=== PATIENT | male | born 1965 | race Caucasian/White ===

== ENCOUNTER 2017-08-08 13:27 | Emergency (ER) | payer MEDICARE, OTHER ==
[~2017-08-08] VITALS: Ht 591.1 cm; Wt 149.0 kg
[~2017-08-08 13:27] MED LIST: PERM60CR19 TP
[2017-08-08 13:34] VITALS: BP 132/78
[2017-08-08] MEDS ORDERED: CEPH-572 PO (15:08)
[2017-08-08] MEDS ORDERED: IBUP-1986 PO (15:21)
== END 2017-08-08 15:39 | disposition home or self-care (01) ==
LOC: ER 13:27
DX: S61.213A Laceration without foreign body of left middle finger without damage to nail, initial encounter (principal); Z79.899 Other long term (current) drug therapy; W26.8XXA Contact with other sharp object(s), not elsewhere classified, initial encounter; Y93.89 Activity, other specified; Y92.89 Other specified places as the place of occurrence of the external cause; Y99.8 Other external cause status
CPT/HCPCS: 99283; A6255

== ENCOUNTER 2018-05-10 16:22 | Emergency (ER) | payer MEDICARE, MEDICAID ==
[~2018-05-10] VITALS: Ht 172.7 cm; Wt 68.2 kg
[~2018-05-10 16:22] MED LIST changes: +IBUP-1986 PO
[2018-05-10 16:35] VITALS: BP 127/79
[2018-05-11] MEDS ORDERED: GABA-532 PO (11:08)
== END 2018-05-10 18:22 | disposition home or self-care (01) ==
LOC: ER 16:22
DX: F10.10 Alcohol abuse, uncomplicated (principal); Z79.899 Other long term (current) drug therapy; Y90.9 Presence of alcohol in blood, level not specified
CPT/HCPCS: 99284

== ENCOUNTER 2019-01-06 18:19 | Emergency (ER) | payer MEDICAID, MEDICARE ==
[~2019-01-06] VITALS: Ht 172.7 cm; Wt 61.3 kg
[~2019-01-06 18:19] MED LIST changes: +GABA-532 PO
[2019-01-06 18:34] VITALS: BP 140/81
[2019-01-06] MEDS ORDERED: CHLO25CA10 PO (20:28)
== END 2019-01-06 20:41 | disposition home or self-care (01) ==
LOC: ER 18:19
DX: F10.129 Alcohol abuse with intoxication, unspecified (principal); Y90.9 Presence of alcohol in blood, level not specified; Z79.899 Other long term (current) drug therapy
CPT/HCPCS: 99283

== ENCOUNTER 2023-04-09 13:47 | Emergency (ER) | payer MEDICAID, MEDICARE, OTHER ==
[~2023-04-09] VITALS: Ht 172.7 cm; Wt 72.0 kg
[~2023-04-09 13:47] MED LIST changes: +CHLO25CA10 PO
[2023-04-09 14:19] LABS: BASOPHILS % (AUTO) 0.5 % (0-1); EOSINOPHILS # (AUTO) 0.2 X10'3 (0-0.9); EOSINOPHILS % (AUTO) 1.8 % (0-6); HEMATOCRIT 46.7 % (42.0-52.0); HEMOGLOBIN 15.6 g/dl (14.0-17.9); LYMPHOCYTES % (AUTO) 30.1 % (21-51); MEAN CORPUSCULAR HEMOGLOBIN 30.9 PG (27.0-31.0); MEAN CORPUSCULAR HGB CONC 33.3 g/dL (33.0-36.5); MEAN CORPUSCULAR VOLUME 92.6 FL (78-98); MEAN PLATELET VOLUME 7.7 FL (7.4-10.4); MONOCYTES # (AUTO) 1.1 X10'3 (0-0.9); MONOCYTES % (AUTO) 10.8 % (2-12); NEUTROPHILS # (AUTO) 5.7 X10'3 (1.8-7.7); NEUTROPHILS % (AUTO) 56.8 % (42-75); PLATELET COUNT 287 X10'3 (140-440); RED BLOOD COUNT 5.04 X10'6 (4.70-6.10); RED CELL DISTRIBUTION WIDTH 13.3 % (11.5-14.5)
[2023-04-09 14:26] LABS: ALANINE AMINOTRANSFERASE 33 U/L (12-78); ALBUMIN 3.9 G/DL (3.4-5.0); ALKALINE PHOSPHATASE 80 IU/L (46-116); ANION GAP 9 (8-16); ASPARTATE AMINO TRANSFERASE 18 U/L (10-37); BILIRUBIN,TOTAL 0.4 MG/DL (0.1-1.0); BLOOD UREA NITROGEN 5 MG/DL (7-18); BUN/CREATININE RATIO 6.9 (10.0-20.0); CALCIUM 8.7 MG/DL (8.5-10.1); CHLORIDE 103 MMOL/L (99-107); CREATININE 0.72 MG/DL (0.60-1.10); GLUCOSE 81 MG/DL (70-104); POTASSIUM 3.6 MMOL/L (3.5-5.1); SODIUM 140 MMOL/L (135-145); TOTAL CARBON DIOXIDE 28.2 MMOL/L (24-32); TOTAL PROTEIN 7.7 G/DL (6.4-8.2); eGFR > 90 ML/MIN
[2023-04-09 14:33] LABS: PRO BRAIN NATRIURETIC PEPTIDE 210 PG/ML (0-125)
[2023-04-09] MEDS: normal saline 1000ml 1,000 ML IV ONE (18:21)
[2023-04-09 20:34] VITALS: BP 153/84; PULSE 60; RESP 18; TEMP 98.5; O2SAT 95
== END 2023-04-09 20:37 | disposition home or self-care (01) ==
LOC: ER 13:48
DX: R42 Dizziness and giddiness (principal); E86.0 Dehydration; F17.200 Nicotine dependence, unspecified, uncomplicated; Z79.899 Other long term (current) drug therapy
CPT/HCPCS: 36415; 70450; 71045; 80053; 83880; 84484; 85025; 93005; 96360; 96361; 99285; J7030

== ENCOUNTER 2024-04-16 20:38 | Emergency (ER) | payer MEDICARE ==
[~2024-04-16] VITALS: Ht 172.7 cm; Wt 52.5 kg
[~2024-04-16 20:38] MED LIST changes: -PERM60CR19 TP; +PERM60CR27 TP
[2024-04-16 20:47] VITALS: BP 146/76; PULSE 72; RESP 15; O2SAT 96
[2024-04-16] MEDS ORDERED: BUPR2TAB11 SL (21:46)
[2024-04-16 21:50] VITALS: TEMP 98.6
== END 2024-04-16 21:51 | disposition home or self-care (01) ==
LOC: ER 20:39
DX: Z76.0 Encounter for issue of repeat prescription (principal)
CPT/HCPCS: 99281

== ENCOUNTER 2024-06-19 14:04 | Emergency (ER) | payer MEDICARE ==
[~2024-06-19] VITALS: Ht 169.2 cm; Wt 72.0 kg
[2024-06-19 14:15] VITALS: TEMP 97.9
--- NOTE | 2024-06-19 14:21 | Physician Documentation ---
History of Present Illness ~ Chief Complaint: Stroke Alert Stated Complaint: STROKE ALERT Time Seen by MD: 14:06 OK to notify your PCP?: Yes Primary Medical Doctor: liza HPI 59-year-old male presenting with EMS for inability to speak. Patient can not provide a history as he can not speak clearly so history was obtained from EMS providers. They state that the patient had felt fine yesterday as well as this morning when he woke up. He went to a [facility] clinic around noon because he started being unable to speak. Apparently he could not speak clearly and had nonsensical word salad type speech. Patient denies any other symptoms. Medication Reconciliation Allergies: Coded Allergies: No Known Allergies (Unverified , 04/16/24) Scheduled Aspirin (Aspirin EC), 1 TAB PO DAILY Atorvastatin Calcium* (Lipitor*), 1 TAB PO DAILY Buprenorphine Hcl (Buprenorphine Hcl), 1 TAB SL BID, (Reported) Discontinued Medications Chlordiazepoxide Hcl (Librium), 25 MG PO TID Discontinued Reason: patient no longer taking Gabapentin (Gabapentin), 1 CAP PO Q8H Discontinued Reason: patient no longer taking Ibuprofen (Ibuprofen), 1 TAB PO Q8H PRN for pain Discontinued Reason: patient no longer taking Permethrin 5% Cream* (Elimite 5% Cream*), 1 APPLIC TP ONCE Discontinued Reason: patient no longer taking Past Medical History Past Medical History: *SALES DEVELOPMENT COORDINATOR* Past Surgical History: no surgical history Alcohol Use: Heavy Drug Use: none Lives with: Alone Lives In: Home Review of Systems All Other Systems at this time: Reviewed and Negative Physical Exam Vital Signs: Heart Rate: 64, Respiratory Rate: 16, BP: 155/71, Pulse Oximetry: 94, Weight: 52.450 Oxygen Flow Rate: 0 General Appearance I have reviewed the triage vitals. CONST: Well developed and well nourished. In no acute distress HENT: Head Atraumatic EYES: Pupils are equal, round and reactive to light. Normal conjunctiva NECK: Normal range of motion. Supple. CARDIO: Normal rate and regular rhythm. No murmurs, rubs, or gallops. S1, S2. PULM/CHEST: No respiratory distress. Lungs clear to auscultation. No wheeze ABD: Soft and nontender. Nondistended. Bowel sounds normal. No guarding. : Exam deferred MSK: No edema. No deformity. NEURO: Alert. Mumbling gargled speech. Patient can communicate effectively via writing things down. SKIN: Warm and dry. PSYCH: Anxious. Progress Results/Orders Results/Orders Orders - DONNA YANG MD Monitor (06/19/24 14:06) 2 Large Bore Ivs (06/19/24 14:06) Chest,Single View (06/19/24 14:46) Accucheck (06/19/24 14:06) Ct Stroke Alert (06/19/24 14:06) Cta Neck/Head (06/19/24 ) [place] Prov.Neuro Consult (06/19/24 14:27) Completed Orders - DONNA YANG MD Cbc/Diff (06/19/24 14:06) Electrocardiogram (06/19/24 14:06) Chest,Single View (06/19/24 14:46) Ct Stroke Alert (06/19/24 14:06) BMP (06/19/24 14:06) PTT (06/19/24 14:06) Pt Inr (06/19/24 14:06) Hs Troponin I W Calculations (06/19/24 14:06) MG (06/19/24 14:06) Cta Neck/Head (06/19/24 ) Iohexol 350mg/Ml 100ml (Omnipaque 350mg/ (06/19/24 15:23) Aspirin 325mg Enteric-Coated (Ecotrin 32 (06/19/24 15:35) Medications Received in ER Medications (Trade) Dose Ordered Sig/Orquidea Route PRN Reason Start Time Stop Time Status Last Admin Dose Admin (Ecotrin 325MG tablet) 1 tab ONCE ONCE PO 06/19/24 15:35 06/19/24 15:36 DC 06/19/24 16:04 1 TAB Vital Signs 06/19/24 06/19/24 06/19/24 06/19/24 14:15 14:27 15:00 16:04 Temp 97.9 Pulse 69 66 59 59 Resp 16 16 16 16 B/P (MAP) 146/71 146/71 141/72 (95) 141/72 (95) Pulse Ox 99 97 97 97 O2 Flow Rate 0 0 0 Laboratory Tests Test 06/19/24 14:32 White Blood Count 8.7 Red Blood Count 4.19 L Hemoglobin 12.9 L Hematocrit 38.1 L Mean Corpuscular Volume 90.9 Mean Corpuscular Hemoglobin 30.7 Mean Corpuscular Hemoglobin Concent 33.8 Red Cell Distribution Width 13.7 Platelet Count 287 Mean Platelet Volume 7.1 L Neutrophils (%) (Auto) 45.5 Lymphocytes (%) (Auto) 41.7 Monocytes (%) (Auto) 9.9 Eosinophils (%) (Auto) 2.2 Basophils (%) (Auto) 0.7 Neutrophils # (Auto) 3.9 Lymphocytes # (Auto) 3.6 Monocytes # (Auto) 0.9 Eosinophils # (Auto) 0.2 Basophils # (Auto) 0.1 CBC Comment Prothrombin Time 10.6 INR International Normalized Ratio 1.0 Activated Partial Thromboplast Time 27 Coagulation Comments Sodium Level 138 Potassium Level 3.6 Chloride Level 105 Carbon Dioxide Level 26.8 Anion Gap 6 L Blood Urea Nitrogen 7 Creatinine 0.63 Estimated GFR/1.73 m2 > 90 BUN/Creatinine Ratio 11.1 Glucose Level 79 Calcium Level 8.2 L Magnesium Level 2.0 Troponin I High Sensitivity 9 Albumin 3.1 L Chemistry Comments EKG/XRAY/CT/US/VASC/MRI EKG : Additional Comment EKG interpreted by CHI Yang shows normal sinus rhythm at a rate of 65 normal axis, no CO intervals. Normal ischemia Chest X-Ray : Additional Comments EXAM: DI CHEST,SINGLE VIEW Indication: Pain Technique: Single frontal view of the chest was obtained Comparison: DI CHEST,SINGLE VIEW on DOS: 04/09/23 FINDINGS: Lines and Tubes: None Lungs: No focal consolidation. Pleura: No effusion. No pneumothorax. Cardiomediastinal contours: Unremarkable Bones: No acute osseous abnormality. IMPRESSION: No acute cardiopulmonary disease. : Impression EXAM: CT CTA NECK/HEAD; DATE: 06/19/2024 02:17 PM HISTORY: STROKE ALERT COMPARISON: None TECHNIQUE: CTA imaging of the neck and head was performed following the uneventful administration of intravenous contrast. Sagittal and coronal reformatted images were obtained from the source data. 3D/MIP post-processing of the source data set was performed and reviewed by the radiologist. Radiation Dose Information: CT Dose: CTDI volume is 31 mGy. Dose-length product is 568 mGy*cm All CT scans at this medical facility are performed using dose modulation techniques as appropriate to a performed exam including the following: Automated exposure control was utilized; adjustment of the MA and/or KV according to patient size; and use of iterative reconstruction technique. FINDINGS: CTA Neck: Aortic Arch: Conventional branching. Right brachiocephalic artery: Unremarkable. Right carotid artery: Mild calcified plaque formation at the carotid bulb. Right subclavian artery: Unremarkable. Right vertebral artery: Unremarkable. Left carotid artery: Mild calcified plaque formation of the carotid bulb and proximal ICA with less than 50% stenosis. Left subclavian artery: Unremarkable. Left vertebral artery: Unremarkable. Other: Multilevel degenerative disc disease of the cervical spine noted. CTA Head: [place]: The arteries of [place] are unremarkable, without evidence of aneurysm, stenosis or thrombosis. Dural venous: Grossly unremarkable. Other: None. IMPRESSION: 1. No large vessel occlusion or high-grade stenosis in the arteries of the head and neck. No aneurysm is identified. : CT CT STROKE ALERT INDICATION: Stroke Alert TECHNIQUE: CT of the head without intravenous contrast. Radiation Dose Information: CT Dose: CTDI volume is 55.8 mGy. Dose-length product is 997.07 mGy*cm The dose indicators for CT are the volume Computed Tomography (CT) Dose Index (CTDIvol) and the Dose Length Product (DLP), and are measured in units of mGy and mGy-cm, respectively. These indicators are not patient dose, but values generated from the CT scanner acquisition factors. The report includes radiation exposure data for exposures received during this examination. COMPARISON: CT CT HEAD on DOS: 04/09/23 FINDINGS: There is no evidence of acute intracranial hemorrhage, extra-axial collection, mass effect, midline shift, herniation or hydrocephalus. Area of decreased attenuation mid left frontal parietal lobe. The ventricles, sulci and cisterns are age appropriate. The wayne-white differentiation is intact. Patchy periventricular and subcortical white matter hypoattenuation is nonspecific but may be related to small vessel ischemic disease. The visualized paranasal sinuses and mastoid air cells are clear. The surrounding soft tissues and osseous structures are unremarkable. IMPRESSION: 1. Area of decreased attenuation mid left frontal parietal lobe may represent infarct age indeterminate. 2. No acute intracranial hemorrhage ( series 2, images 21- 25) CRITICAL FINDINGS Critical Result: Stroke Alert AREA OF ENCEPHALOMALACIA MID LEFT PARIETAL LOBE AGE INDETERMINATE Findings discussed with Dr Yang , at 06/19/2024 02:30 PM, and acknowledged receipt and understanding of the find Medical Decision Making Additional Information 59-year-old male presenting with a subacute CVA. Initial CT of the head did indicate a infarct in the parietal region. CT angiogram of the head and neck however was unremarkable. We immediately consulted tele Neurology who saw the patient as well. They assessed that the patient's infarct his already completed and that it likely occurred outside of the 4.5 hour tPA window. Thus he is not a candidate for tPA at this time. Patient lab work is unremarkable at this time. The recommendation from Neurology and the plan was to admit the patient for further workup and treatment of his stroke with MRI and echocardiogram. The patient however grown patient and wanted to leave. He stated that he would rather follow up with his own doctor as an outpatient. I explained to the patient and had a conversation at length with him regarding the dangers of leaving against medical advice. I tried to persuade him to stay however he refused. He did sign AMA form and left against medical advice. I did however give him a dose of aspirin 325 mg while here in the ED. Additionally I did prescribe him 81 mg daily of aspirin as well as 20 mg atorvastatin advised him to start taking these and follow up with his doctor. Departure Disposition: LEFT AGAINST MEDICAL ADVICE Impression: Primary Impression: Cerebral infarction Referrals: NO PRIMARY CARE PROVIDER (PCP) Prescriptions Atorvastatin Calcium* (Lipitor*) 20 Mg Tablet 1 TAB PO DAILY for 30 Days, #30 TAB Prov: DONNA YANG MD 06/19/24 Aspirin (Aspirin EC) 81 Mg Tablet. 1 TAB PO DAILY for 30 Days, #30 TAB Prov: DONNA YANG MD 06/19/24 Critical Care Note Total Time (mins): 68 Critical Care Note The very real possibility of a deterioration of this patient's condition required the highest level of my preparedness for sudden, emergent intervention. I provided critical care services, which included medication orders, frequent reevaluations of the patient's condition and response to treatment, ordering and reviewing test results, and discussing the case with various consultants. Excludes time spent performing separately billable procedures. The critical care time associated with the care of the patient was. Signature Scribe Signature: 1 Attestation: 1 DONNA YANG MD June 19, 2024 14:21
--- NOTE | 2024-06-19 14:28 | ELECTROCARDIOGRAPH REPORT ---
[facility] Test Date: 2024-06-19 Test Time: 14:24:50 Pat Name: DAVID YAÑEZ Department: [facility]-ER Patient ID: [id number] Room: Gender: M Executive Vice President Business Development: : 1965 Requested By: DONNA YANG Order Number: [id number] Reading MD: Dr. Micah Barger Measurements Intervals [place] Rate: 65 P: 75 IN: 149 QRS: 86 QRSD: 95 T: 73 QT: 407 QTc: 424 Interpretive Statements Sinus rhythm Probable left atrial enlargement RSR' in V1 or V2, probably normal variant Minimal ST elevation, inferior leads Electronically Signed On 06-19-2024 20:38:[address] Micah Barger Please click the below link to view image of tracing.
--- NOTE | 2024-06-19 14:41 | RADIOLOGY REPORT ---
EXAM: CT CT STROKE ALERT INDICATION: Stroke Alert TECHNIQUE: CT of the head without intravenous contrast. Radiation Dose Information: CT Dose: CTDI volume is 55.8 mGy. Dose-length product is 997.07 mGy*cm The dose indicators for CT are the volume Computed Tomography (CT) Dose Index (CTDIvol) and the Dose Length Product (DLP), and are measured in units of mGy and mGy-cm, respectively. These indicators are not patient dose, but values generated from the CT scanner acquisition factors. The report includes radiation exposure data for exposures received during this examination. COMPARISON: CT CT HEAD on DOS: 04/09/23 FINDINGS: There is no evidence of acute intracranial hemorrhage, extra-axial collection, mass effect, midline s hift, herniation or hydrocephalus. Area of decreased attenuation mid left frontal parietal lobe. The ventricles, sulci and cisterns are age appropriate. The wayne-white differentiation is intact. Patchy periventricular and subcortical white matter hypoattenuation is nonspecific but may be related to small vessel ischemic disease. The visualized paranasal sinuses and mastoid air cells are clear. The surrounding soft tissues and osseous structures are unremarkable. IMPRESSION: 1. Area of decreased attenuation mid left frontal parietal lobe may represent infarct age indetermina te. 2. No acute intracranial hemorrhage ( series 2, images 21- 25) CRITICAL FINDINGS Critical Result: Stroke Alert AREA OF ENCEPHALOMALACIA MID LEFT PARIETAL LOBE AGE INDETERMINATE Findings discussed with Dr Villavicencio , at 06/19/2024 02:30 PM, and acknowledged receipt and understand ing of the findings. ..
[2024-06-19 14:43] LABS: BASOPHILS # (AUTO) 0.1 X10'3 (0-0.2); BASOPHILS % (AUTO) 0.7 % (0-1); EOSINOPHILS # (AUTO) 0.2 X10'3 (0-0.9); EOSINOPHILS % (AUTO) 2.2 % (0-6); HEMATOCRIT 38.1 % (42.0-52.0); HEMOGLOBIN 12.9 g/dl (14.0-17.9); LYMPHOCYTES # (AUTO) 3.6 X10'3 (1.1-4.8); LYMPHOCYTES % (AUTO) 41.7 % (21-51); MEAN CORPUSCULAR HEMOGLOBIN 30.7 PG (27.0-31.0); MEAN CORPUSCULAR HGB CONC 33.8 g/dL (33.0-36.5); MEAN CORPUSCULAR VOLUME 90.9 FL (78-98); MEAN PLATELET VOLUME 7.1 FL (7.4-10.4); MONOCYTES # (AUTO) 0.9 X10'3 (0-0.9); MONOCYTES % (AUTO) 9.9 % (2-12); NEUTROPHILS # (AUTO) 3.9 X10'3 (1.8-7.7); NEUTROPHILS % (AUTO) 45.5 % (42-75); PLATELET COUNT 287 X10'3 (140-440); RED BLOOD COUNT 4.19 X10'6 (4.70-6.10); RED CELL DISTRIBUTION WIDTH 13.7 % (11.5-14.5); WHITE BLOOD COUNT 8.7 X10'3 (4.5-11.0)
[2024-06-19] MEDS ORDERED: BUPR2TAB11 SL (14:47)
--- NOTE | 2024-06-19 14:49 | RADIOLOGY REPORT ---
EXAM: CT CTA NECK/HEAD; DATE: 06/19/2024 02:17 PM HISTORY: STROKE ALERT COMPARISON: None TECHNIQUE: CTA imaging of the neck and head was performed following the uneventful administration of intravenous contrast. Sagittal and coronal reformatted images were obtained from the source data. 3D /MIP post-processing of the source data set was performed and reviewed by the radiologist. Radiation Dose Information: CT Dose: CTDI volume is 31 mGy. Dose-length product is 568 mGy*cm All CT scans at this medical facility are performed using dose modulation techniques as appropriate t o a performed exam including the following: Automated exposure control was utilized; adjustment of th e MA and/or KV according to patient size; and use of iterative reconstruction technique. FINDINGS: CTA Neck: Aortic Arch: Conventional branching. Right brachiocephalic artery: Unremarkable. Right carotid artery: Mild calcified plaque formation at the carotid bulb. Right subclavian artery: Unremarkable. Right vertebral artery: Unremarkable. Left carotid artery: Mild calcified plaque formation of the carotid bulb and proximal ICA with less t workman 50% stenosis. Left subclavian artery: Unremarkable. Left vertebral artery: Unremarkable. Other: Multilevel degenerative disc disease of the cervical spine noted. CTA Head: [place] of [place]: The arteries of [place] are unremarkable, without evidence of aneurysm, steno sis or thrombosis. Dural venous: Grossly unremarkable. Other: None. IMPRESSION: 1. No large vessel occlusion or high-grade stenosis in the arteries of the head and neck. No aneurysm is identified.
[2024-06-19 15:00] LABS: APTT 27 SECONDS (22-32); PROTHROMBIN TIME 10.6 SECONDS (9.0-12.0)
[2024-06-19 15:12] LABS: ALBUMIN 3.1 G/DL (3.4-5.0); ANION GAP 6 (8-16); BLOOD UREA NITROGEN 7 MG/DL (7-18); BUN/CREATININE RATIO 11.1 (10.0-20.0); CALCIUM 8.2 MG/DL (8.5-10.1); CHLORIDE 105 MMOL/L (99-107); CREATININE 0.63 MG/DL (0.60-1.10); GLUCOSE 79 MG/DL (70-104); POTASSIUM 3.6 MMOL/L (3.5-5.1); SODIUM 138 MMOL/L (135-145); TOTAL CARBON DIOXIDE 26.8 MMOL/L (24-32); eCRCL 116 ML/MIN; eGFR > 90 ML/MIN
[2024-06-19] MEDS ORDERED: iohexol 350MG/ML 100ml bottle IV ONE (15:23)
--- NOTE | 2024-06-19 15:37 | RADIOLOGY REPORT ---
EXAM: DI CHEST,SINGLE VIEW Indication: Pain Technique: Single frontal view of the chest was obtained Comparison: DI CHEST,SINGLE VIEW on DOS: 04/09/23 FINDINGS: Lines and Tubes: None Lungs: No focal consolidation. Pleura: No effusion. No pneumothorax. Cardiomediastinal contours: Unremarkable Bones: No acute osseous abnormality. IMPRESSION: No acute cardiopulmonary disease.
--- NOTE | 2024-06-19 15:43 | [facility] CONSULT REPORT ---
[facility] Procedure Note [facility] Procedure Note Consult [facility] Note # Demographics Consult Type: Acute Stroke Level 1 (0-4.5 hrs) Patient Location: Emergency Room First Name: DAVID Last Name: OTILIO Date of : 1965 Age: 59 Gender: Male Facility: [facility] Time of Initial Page (): 06/19/2024 14:30 Time of Return Call (): 06/19/2024 14:31 # HPI History: 59 y/o M presents with speech difficulty. Unclear LKN. # Scores Time of exam and NIHSS (): 06/19/2024 14:47 Level of Consciousness 1a: [0] = Alert; keenly responsive LOC Questions 1b: [2] = Answers neither correctly LOC Commands 1c: [0] = Performs both tasks correctly Best Gaze 2: [0] = Normal Visual 3: [0] = No visual loss Facial Palsy 4: [1] = Minor paralysis Motor Arm Left 5a: [0] = No drift Motor Arm Right 5b: [0] = No drift Motor Leg Left 6a: [0] = No drift Motor Leg Right 6b: [0] = No drift Limb Ataxia 7: [0] = Absent Sensory 8: [0] = Normal Best Language 9: [2] = Severe aphasia Dysarthria 10: [0] = Normal Extinction and Inattention 11: [0] = No abnormality NIHSS Total: 5 # Data Head CT: - subacute ischemic stroke Lt frontal CTA Head: no large vessel occlusion CTA Neck: - patent vessels - preliminarily reviewed by me, please refer to radiology read for official reading # Assessment Impression: - Ischemic Stroke (Subacute) # Plan Thrombolytic/Intervention: NOT IV Thrombolysis or IA Intervention candidate Thrombolytic Exclusion (< 3 hour window): - time of onset unclear Thrombolytic Exclusion: subacute ischemia Lt frontal lobe Intraarterial Exclusion: - no large vessel occlusion (LVO) Target Blood Pressure: - SBP < 220 - DBP < 120 Labs: - lipid panel - urine drug screen Imaging: (urgency: routine): - MRI Brain without contrast Diagnostic Test: - echo with bubble study Therapy/Evaluation: - PT/OT evaluation - speech/swallow consultation Medication: - aspirin 81 mg daily DVT Prophylaxis: - enoxaprin (Lovenox) 40 mg subcutaneously daily Other: - If patient has any neurological deterioration please call me back immediately - telemetry monitoring - LDL < 70 - will need event monitor or loop recorder as outpatient if atrial fibrillation not found as inpatient permissive HTN 24 hrs # Logistics Attestation of consult completion: The patient is located at: [facility]. Facility staff participated in the visit. I performed this telemedicine visit from my offsite office utilizing interactive 2 way audio and visual telecommunication technology. Total time spent in telemedicine encounter: I spent 30 minutes reviewing clinical data and/or imaging, obtaining history, examining the patient, communicating with the onsite care team, and in preparation of this report. # Demographics First Name: DAVID Last Name: OTILIO Facility: [facility] Electronically signed at 06/19/2024 15:42 ([place] Time) by Tamica Alvarado DO Neuro Consult Order placed for: SHELLEY Manriquez DO June 19, 2024 15:43
[2024-06-19 16:04] VITALS: BP 141/72; PULSE 59; RESP 16; O2SAT 97
[2024-06-19] MEDS: aspirin 325mg tablet, delayed-release (Ecotrin) PO ONE (16:04)
[2024-06-19] MEDS ORDERED: ATOR20TA PO (16:20)
[2024-06-19] MEDS ORDERED: ASPI81TA52 PO (16:20)
== END 2024-06-20 08:50 | disposition left against medical advice (07) ==
LOC: ER 14:04
DX: I63.9 Cerebral infarction, unspecified (principal); F10.90 Alcohol use, unspecified, uncomplicated; Z79.82 Long term (current) use of aspirin; Z79.899 Other long term (current) drug therapy; Z60.2 Problems related to living alone; Y90.9 Presence of alcohol in blood, level not specified
CPT/HCPCS: 36415; 70450; 70496; 70498; 71045; 80048; 83735; 84484; 85025; 85610; 85730; 93005; 99291; Q9967